=== PATIENT | female | born 1945 | race Two or more races ===

== ENCOUNTER → 2020-09-06 | Outpatient (CLI) | payer OTHER | END | disposition home or self-care (01) | LOC: RAD 16:45 | PROVIDERS: ATTEND Family Medicine | DX: M79.662 Pain in left lower leg (principal) ==

== ENCOUNTER → 2020-09-19 | Outpatient (CLI) | payer OTHER ==
[~2020-09-19] MED LIST: CIPR500T87 PO; LEVO125T5 PO; LEVO50TA PO; LEVO88TA2 PO; RIVA20TA PO
[2020-09-19 12:52] LABS: BASOPHILS % (AUTO) 1 % (0-1); EOSINOPHILS % (AUTO) 5 % (1-7); LYMPHOCYTES % (AUTO) 34 % (22-44); MEAN CORPUSCULAR HEMOGLOBIN 30.4 pg (27.0-34.8); MEAN CORPUSCULAR HGB CONC 34.5 g/dL (32.4-35.8); MEAN PLATELET VOLUME 7.3 fL (7.4-10.4); MONOCYTES % (AUTO) 7 % (2-9); NEUTROPHILS % (AUTO) 53 % (42-75); PLATELET COUNT 350 x10^3/uL (130-400); RED BLOOD COUNT 4.89 x10^6/uL (3.82-5.3); RED CELL DISTRIBUTION WIDTH 13.8 % (9.6-15.2)
[2020-09-19 13:05] LABS: INTERNATIONAL NORMALIZED RATIO 0.93 (0.93-1.1); PROTHROMBIN TIME 9.8 Seconds (9.6-11.5)
[2020-09-19 13:08] LABS: MD NO
[2020-09-19 13:11] LABS: ALANINE AMINOTRANSFERASE 26 U/L (12-78); ALBUMIN 3.6 g/dL (3.4-5.0); ALKALINE PHOSPHATASE 105 U/L (45-117); BILIRUBIN,TOTAL 0.3 mg/dL (0.2-1.0); CALCIUM 9.2 mg/dL (8.5-10.1); CREATININE 0.79 mg/dL (0.55-1.02); TOTAL PROTEIN 7.2 g/dL (6.4-8.2)
[2020-09-19 13:41] LABS: ANION GAP 4 mmol/L (5-15); CHLORIDE 109 mmol/L (98-107)
== END | disposition home or self-care (01) ==
LOC: STAR 11:52
PROVIDERS: ATTEND Specialist
DX: Z01.812 Encounter for preprocedural laboratory examination (principal); Z20.822 Contact with and (suspected) exposure to COVID-19; R10.30 Lower abdominal pain, unspecified; R19.00 Intra-abdominal and pelvic swelling, mass and lump, unspecified site; I44.4 Left anterior fascicular block; I45.10 Unspecified right bundle-branch block
CPT/HCPCS: 36415; 71046; 80053; 85025; 85610; 85730; 86304; 93005; U0003; U0005

== ENCOUNTER → 2020-09-20 | Outpatient (CLI) | payer OTHER ==
[~2020-09-20] MED LIST changes: +GADOTERATE 7.5 MMOL/15ML SYR ONE
== END | disposition home or self-care (01) ==
LOC: RAD 09:28
PROVIDERS: ATTEND Family Medicine
DX: G31.89 Other specified degenerative diseases of nervous system (principal); G44.89 Other headache syndrome; I67.82 Cerebral ischemia
CPT/HCPCS: 70553; A9575

== ENCOUNTER 2020-09-25 08:27 | Day surgery (SDC) | payer OTHER ==
[~2020-09-25] VITALS: Ht 152.4 cm; Wt 54.1 kg
[~2020-09-25 08:27] MED LIST changes: -GADOTERATE 7.5 MMOL/15ML SYR ONE
[2020-09-25 09:20] VITALS: BP 146/77
[2020-09-25] MEDS ORDERED: CHLORHEXIDINE 15 ML UDC PO ONE (09:30)
[2020-09-25] MEDS ORDERED: CEFOTETAN PMX 2GM/50ML 50 ML IVPB ONE (09:30)
[2020-09-25] MEDS ORDERED: EPINEPHRINE 1 MG/ML, 1ML ONE (09:34)
[2020-09-25] MEDS ORDERED: BUPIVACAINE/PF 0.25% ONE (09:34)
[2020-09-25] MEDS: LACTATED RINGERS 1,000 ML IV SCH ×2 (09:53→16:08)
[2020-09-25] MEDS ORDERED: FENTANYL PF 250 MCG/5ML ONE (09:54)
[2020-09-25] MEDS ORDERED: LABETALOL 5MG/ML, 20ML IV PRN (10:00)
[2020-09-25] MEDS ORDERED: MEPERIDINE/PF 25MG/0.5ML IVPush PRN (10:00)
[2020-09-25] MEDS ORDERED: HALOPERIDOL 5 MG/ML IV PRN (10:00)
[2020-09-25] MEDS ORDERED: PROMETHAZINE 25 MG/ML, 1ML IVPush PRN (10:00)
[2020-09-25] MEDS ORDERED: OXYcodone 5 MG/5 ML ORAL.SOL UDC PO PRN (10:00)
[2020-09-25] MEDS ORDERED: hydrALAzine 20 MG/ML, 1ML IV PRN (10:00)
[2020-09-25] MEDS ORDERED: HYDROmorphone 1 MG/ML, 1ML INJ IVPush PRN (10:00)
[2020-09-25] MEDS ORDERED: ACETAMINOPHEN 325 MG TABLET PO PRN (10:00)
[2020-09-25] MEDS ORDERED: FENTANYL PF 100 MCG/2ML IV PRN (10:00)
[2020-09-25] MEDS ORDERED: DIPHENHYDRAMINE 50 MG/ML, 1ML IVPush PRN (10:00)
[2020-09-25] MEDS ORDERED: EPHEDRINE 50 MG/ML, 1ML ONE (10:27)
[2020-09-25] MEDS ORDERED: NEOSTIGMINE 1 MG/ML, 10ML ONE (11:28)
[2020-09-25] MEDS ORDERED: SUCCINYLCHOLINE 20 MG/ML, 10ML ONE (11:28)
[2020-09-25] MEDS ORDERED: GLYCOPYRROLATE 0.2MG/1ML, 5ML ONE (11:28)
[2020-09-25] MEDS ORDERED: CEFAZOLIN 1,000 MG ONE (11:28)
[2020-09-25] MEDS ORDERED: ROCURONIUM 10MG/ML,5ML ONE (11:28)
[2020-09-25] MEDS ORDERED: DEXAMETHASONE 4 MG/ML, 1ML ONE (11:28)
[2020-09-25] MEDS ORDERED: PROPOFOL 10 MG/ML, 20ML ONE (11:28)
[2020-09-25] MEDS ORDERED: ONDANSETRON 2MG/ML, 2ML ONE (11:28)
[2020-09-25] MEDS ORDERED: ESMOLOL 100 MG/10 ML ONE (11:32)
[2020-09-25] MEDS ORDERED: OXYcodone 5 MG/5 ML ORAL.SOL UDC ONE ×2 (12:02→12:27)
[2020-09-25] MEDS ORDERED: FENTANYL PF 100 MCG/2ML ONE (12:02)
[2020-09-25] MEDS ORDERED: hydrALAzine 20 MG/ML, 1ML ONE (12:33)
[2020-09-25] MEDS ORDERED: PROMETHAZINE 25 MG/ML, 1ML ONE (12:47)
[2020-09-25] MEDS ORDERED: ACETAMINOPHEN 650 MG/20.3 ML UDC ONE (15:59)
== END 2020-09-25 16:50 | disposition home or self-care (01) ==
LOC: OUT 08:27 → MERGE 11:00 → OUT 16:50
PROVIDERS: ATTEND Specialist
DX: D27.1 Benign neoplasm of left ovary (principal); N13.5 Crossing vessel and stricture of ureter without hydronephrosis; N73.6 Female pelvic peritoneal adhesions (postinfective); F32.9 Major depressive disorder, single episode, unspecified; E03.9 Hypothyroidism, unspecified; G89.29 Other chronic pain; R10.2 Pelvic and perineal pain; M19.90 Unspecified osteoarthritis, unspecified site; Z88.8 Allergy status to other drugs, medicaments and biological substances; Z90.710 Acquired absence of both cervix and uterus; Z98.890 Other specified postprocedural states; Z79.899 Other long term (current) drug therapy
CPT/HCPCS: 36415; 50949; 58661; 74018; 86850; 86900; 86923; 88112; 88305; J0171; J0360; J1100; J2405; J2550; J2704; J2710; J3010; J7120; J0690; J0330